=== PATIENT | male | born 1985 | race Caucasian/White ===

== ENCOUNTER 2018-07-21 09:27 | Emergency (ER) | payer MEDICAID ==
[~2018-07-21] VITALS: Ht 160 cm; Wt 61.2 kg
[2018-07-21 09:47] VITALS: BP 115/79
--- NOTE | 2018-07-21 09:52 | NUR ---
PT AMBULATES TO BED 11
--- NOTE | 2018-07-21 09:55 | NUR ---
PT. CAME INTO THE ED DUE TO ABD PAIN X1 WEEK. PT. STATES " I HAVE HAD THIS PAIN FOR A WEEK , AND IT GETS WORSE WHEN I EAT". PT. DENIES ANY N/V/D. STOMACH IS ROUND AND FIRM AND NON TENDER UPON PALPATION. ACTIVE X 4 QUADRANTS. 7/10 PAIN ALL OVER ABD AND DESCRIBED ACHING. DENIES FEVER. WILL CONTINUE TO MONITOR. ER MD NOTIFIED. SAFETY PRECAUTIONS IMPLEMENTED. WILL CONTINUE TO MONITOR.
--- NOTE | 2018-07-21 09:56 | NUR ---
PT AMB TO BED11. REPORT GIVEN TO FAMILIA AGGARWAL.
[2018-07-21] MEDS ORDERED: NACL 0.9% 1,000 ML IV SCH (09:59)
[2018-07-21] MEDS ORDERED: KETOROLAC 30 MG/ML VIAL IVP ONE (10:00)
--- NOTE | 2018-07-21 10:26 | NUR ---
LAB AT BEDSIDE AT THIS TIME
--- NOTE | 2018-07-21 10:29 | NUR ---
PT. TAKEN TO CT VIA WHEELCHAIR BY [facility] TECH
[2018-07-21 10:39] LABS: APPEARANCE,URINE CLEAR (CLEAR); BILIRUBIN,URINE NEGATIVE (NEGATIVE); BLOOD, URINE TRACE-L (NEGATIVE); COLOR,URINE YELLOW (YELLOW); LEUKOCYTE ESTERASE ,URINE NEGATIVE (NEGATIVE); NITRITE, URINE NEGATIVE (NEGATIVE); UGLUCOSE NEGATIVE (NEGATIVE)
[2018-07-21 10:41] LABS: BASOPHILS % (AUTO) 0.6 % (0.0-2.0); EOSINOPHILS # (AUTO) 0.3 K/uL (0-0.4); HEMATOCRIT 44.4 % (36-52); HEMOGLOBIN 14.9 g/dL (12.0-18.0); LYMPHOCYTES # (AUTO) 3.7 K/uL (2.0-11.5); LYMPHOCYTES % (AUTO) 49.4 % (20.5-51.1); MEAN CORPUSCULAR HEMOGLOBIN 29 pg (27-31); MEAN CORPUSCULAR HGB CONC 34 g/dL (33-37); MEAN CORPUSCULAR VOLUME 87.4 fL (80-94); MONOCYTES # (AUTO) 0.4 K/uL (0.8-1.0); PLATELET COUNT (AUTO) 228 K/uL (140-450); RED BLOOD CELL COUNT(AUTO) 5.08 MIL/uL (4.20-6.10); RED CELL DISTRIBUTION WIDTH 13.3 % (11.6-13.7); WHITE BLOOD COUNT (AUTO) 7.4 K/uL (4.8-10.8)
[2018-07-21 10:47] LABS: RBC,URINE 0-5 (RARE) /HPF (0-5); WBC,URINE 0-5 (RARE) /HPF (0-5)
[2018-07-21 10:48] LABS: ANION GAP 6.9 (8-16); CARBON DIOXIDE 30.1 mmol/L (21-32); CREATININE 0.7 mg/dL (0.7-1.3)
[2018-07-21 10:56] LABS: ALBUMIN 4.1 g/dL (3.4-5.0); TOTAL BILIRUBIN 0.3 mg/dL (0.0-1.0)
[2018-07-21 11:30] VITALS: BP 120/80
--- NOTE | 2018-07-21 11:30 | NUR ---
Patient discharged with v/s stable. Written and verbal after care instructions given and explained. Patient alert, oriented and verbalized understanding of instructions. Ambulatory with steady gait. All questions addressed prior to discharge. ID band removed. Patient advised to follow up with PMD. Rx of TRAMADOL, AND MOTRIN 600MG given. Patient educated on indication of medication including possible reaction and side effects. Opportunity to ask questions provided and answered.
== END 2018-07-21 11:30 | disposition home or self-care (01) ==
LOC: MED 09:27
DX: R10.84 Generalized abdominal pain (principal)
CPT/HCPCS: 36415; 74176; 80053; 81001; 83690; 85025; 96374; 99285; J1885; 96361; J7030

== ENCOUNTER 2022-09-29 10:26 | Emergency (ER) | payer MEDICAID ==
[~2022-09-29] VITALS: Ht 155.7 cm; Wt 67.6 kg
[2022-09-29 10:42] VITALS: BP 129/86
--- NOTE | 2022-09-29 11:18 | NUR ---
37YO MALE PT C/O CONSTANT 1010 HEADACHE X3DAYS. DENIES RELIEF AFTER TAKING TYLENOL OR IBUPROFEN. DENIES CHANGE IN VISION, DIZZINESS, N/V/D, CHEST PAIN, SOB, FEVER OR CHILLS. PT AAOX4, AMBULATORY W/STEADY GAIT. RESPIRATIONS EVEN AND UNLABORED. HOB POSITIONED PER COMFORT, BED AT LOWEST POSITION, BED RAILS UPX2. ENGLISH SPEAKING HX:DENIES NKA
--- NOTE | 2022-09-29 11:19 | NUR ---
JUMA [facility] AT BEDSIDE FOR EVALUATION
[2022-09-29] MEDS ORDERED: KETOROLAC 30 MG/ML VIAL IM ONE (11:25)
--- NOTE | 2022-09-29 12:47 | NUR ---
37/M PRESENTS TO ED WITH C/O HEADACHE X3 DAYS. PATIENT REPORTS 10/10 CONSTANT PAIN, STATES HE TOOK TYLENOL WITH NO RELIEF. PATIENT DENIES DIZZINESS, NUMBNESS, VISION CHANGES OR NUMBNESS.
[2022-09-29 12:55] VITALS: BP 126/85
--- NOTE | 2022-09-29 12:55 | NUR ---
Patient discharged with v/s stable. Written and verbal after care instructions FOR GENERAL HEADACHE W/O CAUSE given and explained. Patient verbalized understanding. Ambulatory with steady gait. All questions addressed prior to discharge. Advised to follow up with PMD.
--- NOTE | 2022-09-29 12:58 | NUR ---
The patient's care was reviewed and supervised by ED Agency Nurse 9, RN, RN.
== END 2022-09-29 12:55 | disposition home or self-care (01) ==
LOC: MED 10:26
DX: R51.9 Headache, unspecified (principal); Z72.89 Other problems related to lifestyle
CPT/HCPCS: 81002; 96372; 99283; J1885